=== PATIENT | male | born 1965 | race African-American/Black ===

== ENCOUNTER 2020-05-31 07:14 | Emergency (ER) | payer BC, OTHER, SELFPAY ==
[2020-05-31 16:46] LABS: SARS-CoV-2 PCR by NAA DETECTED (NotDetected)
== END 2020-05-31 08:09 | disposition home or self-care (01) ==
LOC: ERS 07:14
DX: U07.1 COVID-19 (principal)
CPT/HCPCS: 87635; 99283; U0003; U0005